=== PATIENT | female | born 1990 ===

== ENCOUNTER 2021-05-27 06:00 | Outpatient (RCR) | payer BC, SELFPAY | END 2021-06-08 23:59 | disposition home or self-care (01) | LOC: MPT 06:00 | PROVIDERS: Referring Provider Family Medicine; Visit Provider Family Medicine | DX: M79.10 Myalgia, unspecified site (principal) | CPT/HCPCS: 97110; 97140; 97161; 97530 ==

== ENCOUNTER 2021-06-09 06:00 | Outpatient (RCR) | payer BC, SELFPAY | END 2021-07-06 23:59 | disposition home or self-care (01) | LOC: MPT 06:00 | PROVIDERS: Referring Provider Family Medicine; Visit Provider Family Medicine | DX: M79.10 Myalgia, unspecified site (principal) | CPT/HCPCS: 97140; 97530 ==